=== PATIENT | male | born 1970 | race African-American/Black ===

== ENCOUNTER 2021-04-13 08:29 | Outpatient (CLI) | payer BC ==
--- NOTE | 2021-04-13 12:05 | Ultrasound Report ---
ULTRASOUND ABDOMEN, COMPLETE INDICATION / CLINICAL INFORMATION: ELEVATED LIVER ENZYMES. COMPARISON: None available. FINDINGS: PANCREAS: No significant abnormality. ABDOMINAL AORTA: No significant abnormality. IVC: No significant abnormality. LIVER: The liver is normal in size measuring 13.1 cm with diffusely echogenic appearance. Normal hepa topedal blood flow within the main portal vein. GALLBLADDER: No significant abnormality. BILE DUCTS: No significant abnormality. Common bile duct measures 2 mm. KIDNEYS: Right: The right kidney measures 10.4 cm. No significant abnormality. Left: The left kidney measures 10.0 cm. No significant abnormality. SPLEEN: The spleen measures 8.0 cm. No significant abnormality. FREE FLUID: None. ADDITIONAL FINDINGS: None. IMPRESSION: 1. Diffusely echogenic appearance of the liver, most commonly seen with steatosis. Scribed by: Jasmin Morales RDMS, RVT Scribed: 04/13/2021 10:47 AM I have reviewed the images, agree with this report, and edited this report as needed. Signer Name: Tyree Yarbrough MD Signed: 04/13/2021 12:01 PM Workstation Name: [id number]
== END 2021-04-13 08:30 | disposition home or self-care (01) ==
LOC: US 08:29
DX: R74.8 Abnormal levels of other serum enzymes (principal)
CPT/HCPCS: 76700